=== PATIENT | male | born 1965 | race Caucasian/White ===

== ENCOUNTER 2023-11-26 07:51 | Emergency (ER) | payer OTHER ==
[~2023-11-26] VITALS: Ht 172.7 cm; Wt 93.6 kg
[2023-11-26 07:56] VITALS: TEMP 97.6
[2023-11-26 08:58] VITALS: BP 134/76; PULSE 84; RESP 18
[2023-11-26] MEDS ORDERED: METH4TAB3 PO (09:14)
[2023-11-26] MEDS: MethylPREDNISolone SOD SUCC 125 MG/2 ML VIAL IM ONE (09:15)
[2023-11-26 12:56] LABS: GLUCOMETER DEV NAME(LOC) ER.7; GLUCOSE,POINT OF CARE 191 MG/DL (70-110)
== END 2023-11-26 09:57 | disposition home or self-care (01) ==
LOC: EMS 07:51 → EDUNIT# 07:51 → EMS 09:57
DX: M06.9 Rheumatoid arthritis, unspecified (principal); F31.9 Bipolar disorder, unspecified; E11.9 Type 2 diabetes mellitus without complications; E78.00 Pure hypercholesterolemia, unspecified; I10 Essential (primary) hypertension; Z98.890 Other specified postprocedural states
CPT/HCPCS: 99283; 82962; 96372; J2919

== ENCOUNTER 2023-12-19 10:26 | Emergency (ER) | payer OTHER ==
[~2023-12-19] VITALS: Ht 170.2 cm; Wt 93.2 kg
[~2023-12-19 10:26] MED LIST: METH4TAB3 PO
[2023-12-19 10:34] VITALS: BP 139/70; PULSE 78; RESP 18; TEMP 98.1
[2023-12-19] MEDS ORDERED: AMLO2.5T29 PO (10:37)
[2023-12-19] MEDS ORDERED: LISI10TA24 PO (10:37)
[2023-12-19] MEDS ORDERED: METF-81 PO (10:37)
[2023-12-19] MEDS ORDERED: IBUP-2070 PO (10:37)
[2023-12-19] MEDS ORDERED: AMOX500T2 PO (10:37)
[2023-12-19] MEDS ORDERED: METH2.5T6 PO (10:37)
[2023-12-19] MEDS ORDERED: GLIP5TAB15 PO (10:37)
[2023-12-19] MEDS ORDERED: EMPA25TA3 PO (10:37)
[2023-12-19] MEDS ORDERED: ATEN-73 PO (10:37)
[2023-12-19] MEDS ORDERED: OXYC5 PO (10:54)
[2023-12-19] MEDS: KETOROLAC TROMETHAMINE 30 MG/ML VIAL IM ONE (11:03)
[2023-12-21] MEDS ORDERED: ROSU20TA73 PO ×2 (13:32→14:20)
[2023-12-21] MEDS ORDERED: ASEN10TA14 SL ×2 (13:32→14:20)
[2023-12-21] MEDS ORDERED: AMLO-257 PO ×2 (13:32→14:20)
[2023-12-21] MEDS ORDERED: NAPR-1025 PO ×2 (13:32→14:20)
[2023-12-21] MEDS ORDERED: OXYC5 PO (14:20)
[2023-12-21] MEDS ORDERED: GLIP5TAB15 PO (14:20)
[2023-12-21] MEDS ORDERED: IBUP-2070 PO (14:20)
[2023-12-21] MEDS ORDERED: ATEN-73 PO (14:20)
[2023-12-21] MEDS ORDERED: LISI10TA24 PO (14:20)
[2023-12-21] MEDS ORDERED: EMPA25TA3 PO (14:20)
[2023-12-21] MEDS ORDERED: METF-81 PO (14:20)
== END 2023-12-19 11:09 | disposition home or self-care (01) ==
LOC: EMS 10:26
DX: K08.89 Other specified disorders of teeth and supporting structures (principal); E11.9 Type 2 diabetes mellitus without complications; E78.00 Pure hypercholesterolemia, unspecified; I10 Essential (primary) hypertension; F31.9 Bipolar disorder, unspecified
CPT/HCPCS: 99283; 82962; 96372; J1885

== ENCOUNTER → 2023-12-21 | Outpatient (CLI) | payer OTHER ==
[~2023-12-21] VITALS: Ht 170.2 cm; Wt 93.0 kg
[~2023-12-21] MED LIST changes: +AMLO-257 PO; +AMLO2.5T29 PO; +AMOX500T2 PO; +ASEN10TA14 SL; +ATEN-73 PO; +EMPA25TA3 PO; +GLIP5TAB15 PO; +IBUP-2070 PO; +LISI10TA24 PO; +METF-81 PO; +METH2.5T6 PO; +NAPR-1025 PO; +OXYC5 PO; +ROSU20TA73 PO
[2023-12-21 13:45] VITALS: BP 143/70; PULSE 88; RESP 16; TEMP 98.4; O2SAT 95
== END | disposition home or self-care (01) ==
LOC: SRCNTR 13:02
PROVIDERS: ATTEND Hospitalist
DX: E11.9 Type 2 diabetes mellitus without complications (principal); E78.00 Pure hypercholesterolemia, unspecified; I10 Essential (primary) hypertension; F31.9 Bipolar disorder, unspecified; Z98.890 Other specified postprocedural states; Z79.899 Other long term (current) drug therapy
CPT/HCPCS: G0463

== ENCOUNTER 2025-01-03 07:35 | Emergency (ER) | payer OTHER ==
[~2025-01-03] VITALS: Ht 172.7 cm; Wt 86.4 kg
[~2025-01-03 07:35] MED LIST changes: -AMLO2.5T29 PO; -METH2.5T6 PO; -NAPR-1025 PO; +NAPR-1196 PO; -ROSU20TA73 PO; +ROSU20TA98 PO
[2025-01-03 08:05] LABS: GLUCOMETER DEV NAME(LOC) ER.7; GLUCOSE,POINT OF CARE 223 MG/DL (70-110)
[2025-01-03 08:17] VITALS: BP 122/86; PULSE 87; RESP 18; TEMP 97.2; O2SAT 96
[2025-01-03] MEDS ORDERED: TRAZ-257 PO (08:18)
[2025-01-03] MEDS ORDERED: TRAZ-184 PO (08:26)
[2025-01-03] MEDS ORDERED: METH2.5T47 PO (08:26)
== END 2025-01-03 08:31 | disposition home or self-care (01) ==
LOC: EMS 07:38
DX: F41.9 Anxiety disorder, unspecified (principal); E11.9 Type 2 diabetes mellitus without complications; E78.00 Pure hypercholesterolemia, unspecified; F31.9 Bipolar disorder, unspecified; I10 Essential (primary) hypertension; M06.9 Rheumatoid arthritis, unspecified; Z98.890 Other specified postprocedural states; Z79.899 Other long term (current) drug therapy
CPT/HCPCS: 82962; 99283